=== PATIENT | female | born 1955 | race Caucasian/White ===

== ENCOUNTER 2024-06-04 04:25 | Day surgery (SDC) | payer BC ==
[2024-05-30 12:33] VITALS: BMI 24.9
[2024-06-04 08:22] VITALS: TEMP 97.6
[2024-06-04 08:59] VITALS: BP 104/58; PULSE 61; RESP 16
== END 2024-06-04 09:07 | disposition home or self-care (01) ==
LOC: JASU-ENDO 04:25
PROVIDERS: ATTEND Internal Medicine Gastroenterology
PROC: 0DBK8ZX Excision of Ascending Colon, Via Natural or Artificial Opening Endoscopic, Diagnostic (ICD-10-PCS; principal; 2024-06-04 08:00)
DX: Z12.11 Encounter for screening for malignant neoplasm of colon (principal); D12.2 Benign neoplasm of ascending colon; K64.8 Other hemorrhoids; K57.30 Diverticulosis of large intestine without perforation or abscess without bleeding; Z86.0100 Personal history of colon polyps, unspecified
CPT/HCPCS: 88305-TC